=== PATIENT | female | born 1965 | race Caucasian/White ===

== ENCOUNTER 2022-04-04 00:29 | Day surgery (SDC) | payer BC, SELFPAY ==
[2022-03-31 15:00] VITALS: BMI 51.2
--- NOTE | 2022-03-31 15:06 | PC.NURSE ---
Report to the Outpatient Waiting Room, entrance under the green pavilion located off [facility], at time 1045 on date 04/04/22. Planned Procedure Time: 1245. Time changes happen often and if your time is changed the preop area will call you the afternoon before. - You and your visitor will be asked to self-screen and do not enter if you have any COVID symptoms. - We encourage only one visitor and NO visitors under age 16 are allowed at this time. Your visitor will receive communication by the phone number that is given day of service. - The patient visitor is requested to social distance or may leave the building when not with patient due to restrictions. - A mask is OPTIONAL within the hospital. Patients may have clear liquids (water, carbonated beverages, clear teas, apple juice) until 3 hours prior to surgery with a maximum of 20 ounces. - No food from midnight until time of surgery Take the following medications with a SIP of water the morning of surgery: LEVOTHYROXINE Medications to discontinue per physician: N/A Date to take last dose: N/A Please no make-up, nail turkish, hairspray, perfume, deodorant, or body powder the day of surgery. No jewelry (including any body piercings) or valuables the day of surgery, leave them at home. Please take a shower or bath the night before, or the morning of, surgery with an antibacterial soap. Wear comfortable, loose fitting clothing. - Jewelry must be removed prior to entering the operating room. Rings and piercings that are not removed may be cut off. - The hospital will not accept responsibility for valuables. - Please leave all valuables, including medications, at home the day of surgery. If you are going home after surgery, a licensed flatbed driver must drive you home. - NO public transportation without another adult. - We recommend that an adult stay with you for 24 hours following discharge. - We also recommend that you do not drive, make important decision, drink alcoholic beverages, or take any drugs that were not prescribed by your health care provider for at least 24 hours after your discharge time. Follow any additional instructions given to you from your surgeon. If you or anyone in your household have experienced Covid symptoms in the past week, please notify your surgeon or the nurse liaison at the phone number below for possible testing. Telephone instructions given to PT - HILDA BERKEMANN and asked if any additional questions and then verbalized understanding. Patient advised to call surgeon office or pre surgery nurse liaison [phone] if any additional questions.
--- NOTE | 2022-04-04 10:20 | P.HP_ITS ---
History of Present Illness History of Present Illness Consent: Risks, benefits, and alternatives have been discussed and questions answered. Patient agrees to proceed with procedure. Chief complaint: post menopasual bleeding Narrative: Renetta Barnes is a 56 year old female with postmenopausal bleeding. Was recommended to undergo D&C hysteroscopy in the operating room due to stenotic and difficult to reach cervix. Risks of infection, bleeding, and perforation were reviewed. Possible pathology was also discussed. Patient voiced understanding and agrees to proceed. Review of Systems Review of Systems: not repeated day of surgery; patient states no changes in status [facility] Past Medical History Medical History (Updated 04/04/22 @ 10:24 by Ashley Sinclair MD) HTN (hypertension) Hypercholesterolemia Hypothyroid Surgical History Surgical History (Updated 04/04/22 @ 10:23 by Ashley Sinclair MD) History of loop electrical excision procedure (LEEP) S/P hip replacement right Social History Social History Years smoked: 30 Smoking status: Current every day smoker Tobacco type: cigarettes Alcohol intake: current Alcohol use details: 2/MONTH Substance use: never Substance use type: does not use Living arrangements: with family Spiritual care concerns: No Meds Home Medications and Allergies Home Medications Medication Instructions Recorded Confirmed Type atorvastatin 10 mg tablet 10 mg PO HS 03/31/22 03/31/22 History levothyroxine 125 mcg tablet 125 mcg PO DAILY 03/31/22 03/31/22 History lisinopril 20 mg tablet 20 mg PO HS 03/31/22 03/31/22 History misoprostol 200 mcg tablet 1,000 mcg PO HS 03/31/22 03/31/22 History Allergies Allergy/AdvReac Type Severity Reaction Status Date / Time tramadol AdvReac Gastrointestinal Verified 03/31/22 14:57 Upset Exam Const: General: healthy appearing and alert Orientation/consciousness: patient oriented x3 Resp: Effort & Inspection: normal respiratory effort Auscultation: clear to auscultation bilaterally Cardio: Rate: regular rate Rhythm: regular rhythm GI: GI Palp: Yes Soft to palpation, No Tenderness to palpation present (GI) and No Palpable mass present : External Female Exam: normal external appearance Speculum Exam - Vagina: normal appearance of the vagina and normal vaginal discharge Speculum Exam - Cervix: normal appearance of the cervix and Other cervical findings present ( very posterior and os is stenotic) Bimanual exam- vagina & uterus: uterine size normal and consistency normal Bimanual Exam- Adnexa, other: normal adnexae and No adnexal tenderness Neuro: General: patient oriented x3 Assessment and Plan Assessment and plan (1) Post-menopausal bleeding: Code(s): N95.0 - Postmenopausal bleeding Status: Acute Assessment and Plan: plan to proceed with D&C hysteroscopy
--- NOTE | 2022-04-04 10:20 | WPDHPUPDATE1 ---
History and Physical Update Update Date/Time: 04/04/22 10:20 History and Physical has been reviewed, including an updated exam of the patient. There are NO changes in the patient's condition. Risks, benefits, and alternatives have been discussed and questions answered. Patient agrees to proceed with procedure.
[2022-04-04 11:20] VITALS: BP 145/51; PULSE 66; RESP 16; TEMP 36.5; O2SAT 97
[2022-04-04] MEDS: LACTATED RINGERS 1,000 ML 30 ML IV CONT (11:35)
[2022-04-04] MEDS: ACETAMINOPHEN 500 MG TABLET 1000 MG PO (11:42)
--- NOTE | 2022-04-04 12:12 | WPDANESEPPF ---
Anes - Initial Pre Proc Eval Procedure: Operation Date: 04/04/22 12:45 Proposed Procedures p Hysteroscopy Dilation and Curettage - Ashley Sinclair MD Date/Time: 04/04/22 12:12 Surgeon: Ashley Sinclair MD Pre Op Diagnosis: post menopasual bleeding Patient Data Age: 56 Gender: F Height: 1.57 m Weight: 126.7 kg Last Vital Signs Temp 36.5 C 04/04/22 11:20 Pulse 66 04/04/22 11:20 Resp 16 04/04/22 11:20 BP 145/51 H 04/04/22 11:20 Pulse Ox 97 04/04/22 11:20 O2 Del Method Room Air 04/04/22 11:20 Allergies Allergy/AdvReac Type Severity Reaction Status Date / Time tramadol AdvReac Mild Gastrointestinal Verified 04/04/22 11:38 Upset Home Medications Medication Instructions Recorded Confirmed Type atorvastatin 10 mg tablet 10 mg PO HS 03/31/22 04/04/22 History levothyroxine 125 mcg tablet 125 mcg PO DAILY 03/31/22 04/04/22 History lisinopril 20 mg tablet 20 mg PO HS 03/31/22 04/04/22 History misoprostol 200 mcg tablet 1,000 mcg PO HS 03/31/22 04/04/22 History Patient hx anesthesia problems: none Family hx anesthesia problems: none Results Review: All pre-operative results and documents have been reviewed as part of the pre-operative evaluation. [facility] Past Medical History Medical History HTN (hypertension) Hypercholesterolemia Hypothyroid Surgical History Surgical History History of loop electrical excision procedure (LEEP) S/P hip replacement right Social History Social History Years smoked: 30 Smoking status: Current every day smoker Tobacco type: cigarettes Alcohol intake: current Alcohol use details: 2/MONTH Substance use: never Substance use type: does not use Living arrangements: with family Spiritual care concerns: No Anes - Eval Final PreProcedure Day of Procedure 04/04/22 12:12 Patient weight: morbidly obese Heart: regular rate and rhythm Lungs: decreased breath sounds Airway: Mallampati scale class III Neurological: alert and oriented Last oral intake: >/= 8 hours ASA classification: III Emergent: no Anesthetic plan: proceed Anesthesia type and monitoring: general GIVS and standard monitoring Results Review: All pre-operative results and documents have been reviewed as part of the pre-operative evaluation. Informed Consent: The patient's anesthetic plan and its attendant risks and benefits were discussed with the patient/family/POA. Questions were solicited and answers provided to the satisfaction of the patient/family/POA.
[2022-04-04] MEDS: KETOROLAC 15 MG/ML VIAL (*BKC) IV PUSH (13:09)
[2022-04-04] MEDS: LIDOCAINE HCL 1% PF 30 ML VIAL 10 ML INFILTRATE (13:16)
--- NOTE | 2022-04-04 13:32 | W.PM.PROC2 ---
Procedure Note - Detailed Date of Procedure 04/04/22 Pre-op Diagnosis post menopasual bleeding Post-op Diagnosis Same Procedure Performed D&C hysteroscopy with resection of polyp Surgeon Ashley Sinclair MD Anesthesia MAC and Local Findings uterus sounds to 8cm and there is a large polyp arising from the left sidewall filling the majority of the cavity Description of Procedure the patient is taken to the operating room and placed under anesthesia in the dorsal lithotomy position. She was prepped and draped in the usual sterile fashion. [place] speculum was placed in the vagina and the cervix grasped on the anterior lip with a tenaculum. The cervix is injected in each quadrant with 1% lidocaine. The uterus is sounded to 8cm. The cervix is dilated to 5 [place]. The hysteroscope was placed with the above-stated findings. The Aveeta resecting blade was placed and under direct visualization the polyp was removed in its entirety. The remainder of the endometrium was then able to be visualized with no abnormalities noted. The hysteroscope was removed and the sharp curette used to curette the endometrium until a good uterine cry was noted in all areas. Minimal materials obtained consistent with the atrophic appearance Estimated Blood Loss 5 Drains No Packing No Pathology Yes ( endometrial shavings and curettings) Complications No immediate complications Condition Stable Disposition PACU
[2022-04-04 13:35] VITALS: BP 116/57; PULSE 68; RESP 14
[2022-04-04 14:05] VITALS: BP 139/77; PULSE 66; RESP 14
[2022-04-04] MEDS: oxyCODONE HCL (*CRX) 5 MG TAB IR PO (14:06)
[2022-04-04 14:35] VITALS: BP 121/68; PULSE 57; RESP 16
== END 2022-04-04 14:39 | disposition home or self-care (01) ==
PROVIDERS: Visit Provider Obstetrics & Gynecology Gynecology
PROC: 0U5B8ZZ Destruction of Endometrium, Via Natural or Artificial Opening Endoscopic (ICD-10-PCS; CPT 58563; principal; 2022-04-04 12:45)
DX: N95.0 Postmenopausal bleeding (principal); N84.0 Polyp of corpus uteri; I10 Essential (primary) hypertension; E78.00 Pure hypercholesterolemia, unspecified; E03.9 Hypothyroidism, unspecified; F17.210 Nicotine dependence, cigarettes, uncomplicated; E66.01 Morbid (severe) obesity due to excess calories; Z68.43 Body mass index [BMI] 50.0-59.9, adult
CPT/HCPCS: 58558; 88305; A9270; J1100; J1885; J2250; J2405; J2704; J3010; J7120